=== PATIENT | female | born 1945 | race Caucasian/White ===

== ENCOUNTER 2016-10-09 21:09 | Inpatient (IN) | payer MEDICARE, BC ==
[2016-10-09] MEDS ORDERED: methylPREDNISolone Sodium Succinate 125 MG/2 ML SDV ONE (21:18)
[2016-10-09] MEDS ORDERED: Metoprolol Tartrate 5 MG/5 ML SDV IVPUSH ONE (21:21)
--- NOTE | 2016-10-09 21:26 | EDM.PDOC ---
ED HPI GENERAL MEDICAL PROBLEM - General Chief Complaint: General Stated Complaint: BY AMBULANCE Time Seen by Provider: 10/09/16 21:21 Source of Information: Reports: Patient, EMS History Limitations: Reports: No limitations - History of Present Illness INITIAL COMMENTS - FREE TEXT/NARRATIVE: 71 yo white female c/o SOB Onset: gradual Onset Date: 10/09/16 Onset Time: 20:30 Duration: Hour(s): Location: Reports: chest Worsens with: Reports: Breathing Associated Symptoms: Reports: cough, shortness of breath Middle Back Pain Score (Numeric/FACES): 8 - Related Data Allergies Allergy/AdvReac Type Severity Reaction Status Date / Time fluconazole Allergy Hives Verified 05/06/16 18:27 lorazepam [From Ativan] Allergy Hallucinati Verified 10/09/16 21:44 ons Home Meds: Home Meds Albuterol [Proventil Neb Soln] 1 dose INH BID 05/06/16 [History] Aspirin [Halfprin] 81 mg PO DAILY 05/06/16 [History] Budesonide [Pulmicort] 1 dose INH TID 05/06/16 [History] Bumetanide [Bumex] 1 mg PO DAILY 05/06/16 [History] LORazepam [Ativan] 1 mg IVPUSH Q8H #4 vial 05/06/16 [Rx] Lisinopril 2.5 mg PO BID 05/06/16 [History] Loratadine [Claritin] 10 mg PO DAILY PRN 05/06/16 [History] Montelukast [Singulair] 10 mg PO BEDTIME 05/06/16 [History] Multivitamin [Multivitamins] 1 each PO DAILY 05/06/16 [History] Nitroglycerin [Nitrostat] 0.4 mg SL ASDIRECTED 05/06/16 [History] Roflumilast [Daliresp] 500 mg PO DAILY 05/06/16 [History] Umeclidinium Brm/Vilanterol Tr [Anoro Ellipta 62.5-25 Mcg INH] 1 puff INH DAILY 05/06/16 [History] Vitamin B Complex 1 each PO DAILY 05/06/16 [History] cefTRIAXone [Rocephin] 1 gm IV Q24H adv 05/06/16 [Rx] Past Medical History HEENT History: Reports: Cataract Other HEENT History: pt wears glasses Cardiovascular History: Reports: Hypertension, [place], SOB on exertion Other Cardiovascular History: [place]? 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 History: Reports: Musculoskeletal History: Reports: Arthritis, Neck pain, chronic, Osteoporosis Endocrine/Metabolic History: Reports: Osteoporosis - Infectious Disease History Infectious Disease History: Reports: Chicken pox, Measles, Mumps - Past Surgical History Respiratory Surgical History: Reports: None GI Surgical History: Reports: None Female Surgical History: Reports: None Other Female Surgeries/Procedures: female surgical history, cant remember Endocrine Surgical History: Reports: None Other Musculoskeletal Surgeries/Procedures:: has seen chiropractor Social & Family History - Family History Cardiac: Reports: High cholesterol, Hypertension, [place], Pacemaker Other Cardiac Family History: both parents high cholesterol, [place] father et had pacemaker, brother sister-high cholesterol Respiratory: Reports: COPD Other Respiratory Family Hisory: brother GI: Reports: GERD Other GI Family History: sister : Reports: None OBGYN: Reports: None Musculoskeletal: Reports: Osteoporosis Other Musculoskeletal Family History: mother Neurological: Reports: CVA Other Neurological Family History: mother Psychiatric: Reports: None Endocrine/Metabolic: Reports: None Hematologic: Reports: None Immunologic: Reports: None Dermatologic: Reports: None Oncologic: Reports: None - Caffeine Use Caffeine Use: Reports: Coffee ED ROS GENERAL - Review of Systems Review Of Systems: See Below Constitutional: Reports: malaise, weakness HEENT: Reports: No symptoms Respiratory: Reports: shortness of breath Cardiovascular: Reports: No symptoms Endocrine: Reports: no symptoms GI/Abdominal: Reports: No symptoms : Reports: no symptoms Musculoskeletal: Reports: no symptoms Skin: Reports: no symptoms Neurological: Reports: no symptoms Psychiatric: Reports: No symptoms Hematologic/Lymphatic: Reports: no symptoms Immunologic: Reports: no symptoms ED EXAM, GENERAL - Physical Exam Exam: See Below Exam Limited By: No limitations General Appearance: alert, anxious, moderate distress Eye Exam: bilateral eye: PERRL Ears: normal external exam, normal canal Nose: normal inspection Throat/Mouth: Normal inspection Head: atraumatic Neck: normal inspection Respiratory/Chest: respiratory distress, accessory muscle use Cardiovascular: normal peripheral pulses, tachycardia GI/Abdominal: normal bowel sounds, soft Back Exam: normal inspection Extremities: normal inspection Neurological: alert, oriented, CN II-XII intact Psychiatric: normal affect, normal mood Skin Exam: Warm, Dry, Intact Lymphatic: no adenopathy Course - Vital Signs Last Recorded V/S: Last Vital Signs Temp 37.3 C 10/09/16 21:11 Pulse 160 H 10/09/16 21:26 Resp 42 H 10/09/16 21:11 BP 145/79 H 10/09/16 21:26 Pulse Ox 90 L 10/09/16 21:11 - Orders/Labs/Meds Orders: Active Orders 24 hr Category Date Time Status EKG 12 Lead [EKG Documentation Completion] [RC] ROUTINE Care 10/09/16 22:05 Active EKG 12 Lead [EKG Documentation Completion] [RC] STAT Care 10/09/16 21:24 Active Sodium Chloride 0.9% [Normal Saline] 1,000 ml Med 10/09/16 21:30 Active IV ASDIRECTED Medication Orders Sodium Chloride (Normal Saline) 1,000 mls @ 100 mls/hr IV ASDIRECTED ALISSON Last Admin: 10/09/16 21:11 Dose: 100 mls/hr Labs: Laboratory Tests 10/09/16 10/09/16 10/09/16 Range/Units 21:39 21:39 21:39 WBC 8.6 (5.0-10.0) 10^3/uL RBC 4.09 L (4.2-5.4) 10^6/uL Hgb 13.3 (12.0-16.0) g/dL Hct 41.1 (37.0-47.0) % MCV 100.5 H (80-100) fL MCH 32.5 (27.0-34.0) pg MCHC 32.4 L (33.0-35.0) g/dL Plt Count 241 (150-450) 10^3/uL Neut % (Auto) 61.8 (42.2-75.2) % Lymph % (Auto) 25.9 (20.5-50.1) % Charles % (Auto) 11.1 H (2-8) % Eos % (Auto) 1.2 (1.0-3.0) % Baso % (Auto) 0.0 (0.0-1.0) % D-Dimer, Quantitative 602 H (0-400) ng/mL ABG pH (7.35-7.45) ABG pCO2 (35-45) mmHg ABG pO2 (70-100) mmHg ABG HCO3 (22-26) mmol/L ABG O2 Saturation (95-100) % ABG Base Excess ((-2)-(+3)) mmol/L Flavio Test O2 Delivery Device Oxygen Flow Rate Sodium 135 (135-145) mmol/L Potassium 4.7 (3.6-5.0) mmol/L Chloride 87 L (101-111) mmol/L Carbon Dioxide 41.0 H (21.0-31.0) mmol/L Anion Gap 11.7 BUN 21 H (7-18) mg/dL Creatinine 0.4 L (0.6-1.3) mg/dL Est Cr Clr Drug Dosing 87.45 mL/min Estimated GFR (MDRD) > 60 BUN/Creatinine Ratio 52.50 Glucose 127 H (74-105) mg/dL Calcium 9.6 (8.4-10.2) mg/dl Total Bilirubin 0.3 (0.2-1.0) mg/dL AST 23 (10-42) IU/L ALT 27 (10-60) IU/L Alkaline Phosphatase 108 (42-121) IU/L Troponin I 0.02 (0.00-0.02) ng/ml B-Natriuretic Peptide 21 (0-100) pg/ml Total Protein 7.3 (6.7-8.2) g/dl Albumin 4.1 (3.2-5.5) g/dl Globulin 3.2 Albumin/Globulin Ratio 1.28 // Range/Units 21:56 WBC (5.0-10.0) 10^3/uL RBC (4.2-5.4) 10^6/uL Hgb (12.0-16.0) g/dL Hct (37.0-47.0) % MCV (80-100) fL MCH (27.0-34.0) pg MCHC (33.0-35.0) g/dL Plt Count (150-450) 10^3/uL Neut % (Auto) (42.2-75.2) % Lymph % (Auto) (20.5-50.1) % Charles % (Auto) (2-8) % Eos % (Auto) (1.0-3.0) % Baso % (Auto) (0.0-1.0) % D-Dimer, Quantitative (0-400) ng/mL ABG pH 7.39 (7.35-7.45) ABG pCO2 65 H (35-45) mmHg ABG pO2 59 L (70-100) mmHg ABG HCO3 38.4 H (22-26) mmol/L ABG O2 Saturation 89 L (95-100) % ABG Base Excess 11 H ((-2)-(+3)) mmol/L Flavio Test Positive O2 Delivery Device Nasal cannula Oxygen Flow Rate 0 Sodium (135-145) mmol/L Potassium (3.6-5.0) mmol/L Chloride (101-111) mmol/L Carbon Dioxide (21.0-31.0) mmol/L Anion Gap BUN (7-18) mg/dL Creatinine (0.6-1.3) mg/dL Est Cr Clr Drug Dosing mL/min Estimated GFR (MDRD) BUN/Creatinine Ratio Glucose (74-105) mg/dL Calcium (8.4-10.2) mg/dl Total Bilirubin (0.2-1.0) mg/dL AST (10-42) IU/L ALT (10-60) IU/L Alkaline Phosphatase (42-121) IU/L Troponin I (0.00-0.02) ng/ml B-Natriuretic Peptide (0-100) pg/ml Total Protein (6.7-8.2) g/dl Albumin (3.2-5.5) g/dl Globulin Albumin/Globulin Ratio Meds: Medications Generic Name Dose Route Start Last Admin Trade Name Freq PRN Reason Stop Dose Admin Sodium Chloride 1,000 mls @ 100 mls/hr 10/09/16 21:30 10/09/16 21:11 Normal Saline IV 100 mls/hr ASDIRECTED ALISSON Administration Discontinued Medications Generic Name Dose Route Start Last Admin Trade Name Freq PRN Reason Stop Dose Admin Methylprednisolone Sodium Succinate Confirm 10/09/16 21:18 10/09/16 21:20 Solu-Medrol Administered 10/09/16 21:19 125 mg Dose Administration 125 mg .ROUTE .STK-MED ONE Metoprolol Tartrate 5 mg 10/09/16 21:21 10/09/16 21:26 Lopressor IVPUSH 10/09/16 21:22 5 mg ONETIME ONE Administration Morphine Sulfate 2 mg 10/09/16 21:44 10/09/16 22:11 Morphine IVPUSH 10/09/16 21:45 2 mg ONETIME ONE Administration Departure - Departure Time of Disposition: 22:28 Disposition: Admitted As Inpatient 68 Condition: fair Clinical Impression: COPD with exacerbation, Tachycardia Pneumonia Qualifiers: Pneumonia type: due to unspecified organism Laterality: right Lung location: lower lobe of lung Qualified Code(s): J18.1 - Lobar pneumonia, unspecified organism - My Orders Last 24 Hours: My Active Orders 10/09/16 21:24 EKG 12 Lead [EKG Documentation Completion] [RC] STAT 10/09/16 21:30 Sodium Chloride 0.9% [Normal Saline] 1,000 ml IV ASDIRECTED 10/09/16 22:05 EKG 12 Lead [EKG Documentation Completion] [RC] ROUTINE - Assessment/Plan Last 24 Hours: My Active Orders 10/09/16 21:24 EKG 12 Lead [EKG Documentation Completion] [RC] STAT 10/09/16 21:30 Sodium Chloride 0.9% [Normal Saline] 1,000 ml IV ASDIRECTED 10/09/16 22:05 EKG 12 Lead [EKG Documentation Completion] [RC] ROUTINE
[2016-10-09] MEDS ORDERED: Sodium Chloride 0.9% 1,000 ML IV SCH (21:30)
[2016-10-09] MEDS ORDERED: Morphine 2 MG/ML Syringe IVPUSH ONE (21:44)
[2016-10-09 21:59] LABS: BASE EXCESS ARTERIAL 11 mmol/L ((-2)-(+3)); BICARBONATE,ARTERIAL 38.4 mmol/L (22-26); O2 DELIVERY DEVICE NASAL CANNULA; O2 FLOW RATE 0; O2 SATURATION ARTERIAL 89 % (95-100); PCO2 ARTERIAL 65 mmHg (35-45); PO2 ARTERIAL 59 mmHg (70-100)
[2016-10-09 22:03] LABS: ALLEN TEST POSITIVE
[2016-10-09 22:07] LABS: CHLORIDE,CL 87 mmol/L (101-111); SODIUM,NA 135 mmol/L (135-145)
[2016-10-09] MEDS ORDERED: cefTRIAXone 1 GM in Sodium Chloride 0.9% 50 ML IV ONE (22:34)
--- NOTE | 2016-10-09 23:14 | PCM.HP ---
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 The pt presented to ED with increased shortness of breath , cough and Possible Rt lower lobe pneumonia. She gets followed by Dr. Torres at [facility] pulmonary clinic Onset of Symptoms: Reports: sudden Associated Symptoms: Reports: cough Middle Back Pain Score (Numeric/FACES): 8 - Related Data Allergies/Adverse Reactions: Allergies Allergy/AdvReac Type Severity Reaction Status Date / Time fluconazole Allergy Hives Verified 10/09/16 23:48 lorazepam [From Ativan] Allergy Hallucinati Verified 10/09/16 23:48 ons Home Medications: Home Meds Albuterol [Proventil Neb Soln] 2.5 mg INH BID 05/06/16 [History] Aspirin [Halfprin] 81 mg PO BEDTIME 05/06/16 [History] Budesonide [Pulmicort] 2 ml INH BID 05/06/16 [History] Bumetanide [Bumex] 1 mg PO DAILY 05/06/16 [History] Lisinopril 2.5 mg PO BID 05/06/16 [History] Loratadine [Claritin] 10 mg PO DAILY PRN 05/06/16 [History] Montelukast [Singulair] 10 mg PO BEDTIME 05/06/16 [History] Nitroglycerin [Nitrostat] 0.4 mg SL ASDIRECTED 05/06/16 [History] Roflumilast [Daliresp] 500 mcg PO DAILY 05/06/16 [History] Umeclidinium Brm/Vilanterol Tr [Anoro Ellipta 62.5-25 Mcg INH] 1 puff INH DAILY 05/06/16 [History] Vitamin B Complex 1 each PO DAILY 05/06/16 [History] Albuterol [Ventolin HFA] 1 - 2 puff INH Q4H PRN 10/09/16 [History] predniSONE [Prednisone] 10 mg PO DAILY 10/09/16 [History] Past Medical History HEENT History: Reports: Cataract Other HEENT History: pt wears glasses Cardiovascular History: Reports: Hypertension, [place], SOB on exertion Other Cardiovascular History: [place]? 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: Musculoskeletal History: Reports: Arthritis, Neck pain, chronic, Osteoporosis Endocrine/Metabolic History: Reports: Osteoporosis - Infectious Disease History Infectious Disease History: Reports: Chicken pox, Measles, Mumps - Past Surgical History Respiratory Surgical History: Reports: None GI Surgical History: Reports: None Female Surgical History: Reports: None Other Female Surgeries/Procedures: female surgical history, cant remember Endocrine Surgical History: Reports: None Other Musculoskeletal Surgeries/Procedures:: has seen chiropractor Social & Family History - Family History Cardiac: Reports: High cholesterol, Hypertension, [place], Pacemaker Other Cardiac Family History: both parents high cholesterol, [place] father et had pacemaker, brother sister-high cholesterol Respiratory: Reports: COPD Other Respiratory Family Hisory: brother GI: Reports: GERD Other GI Family History: sister : Reports: None OBGYN: Reports: None Musculoskeletal: Reports: Osteoporosis Other Musculoskeletal Family History: mother Neurological: Reports: CVA Other Neurological Family History: mother Psychiatric: Reports: None Endocrine/Metabolic: Reports: None Hematologic: Reports: None Immunologic: Reports: None Dermatologic: Reports: None Oncologic: Reports: None - Tobacco Use Smoking Status *Q: Never Smoker Second Hand Smoke Exposure: No - Caffeine Use Caffeine Use: Reports: Coffee - Recreational Drug Use Recreational Drug Use: No H&P Review of Systems - Review of Systems: Review Of Systems: See Below General: Reports: weakness. Denies: fever, chills HEENT: Denies: headaches, sinus congestion, sore throat, visual changes Pulmonary: Reports: shortness of breath, wheezing, cough. Denies: sputum, hemoptysis Cardiovascular: Reports: dyspnea on exertion. Denies: chest pain, lightheadedness Gastrointestinal: Denies: Abdominal pain, Diarrhea, Nausea, Vomiting Genitourinary: Denies: dysuria, frequency, burning, urgency Musculoskeletal: Reports: back pain, leg pain Skin: Denies: jaundice, bruising, pruritis, rash Psychiatric: Reports: anxiety. Denies: confusion Neurological: Denies: confusion, tingling, tremors, change in speech Hematologic/Lymphatic: Reports: no symptoms Immunologic: Reports: no symptoms Exam - Exam Exam: See Below - Vital Signs Vital Signs: Last Vital Signs Temp 37.3 C 10/09/16 21:11 Pulse 160 H 10/09/16 21:26 Resp 42 H 10/09/16 21:11 BP 145/79 H 10/09/16 21:26 Pulse Ox 90 L 10/09/16 21:11 Weight: 41.73 kg - Exam Quality Assessment: supplemental oxygen, DVT prophylaxis, other (on BiPAP). No : urinary catheter General: alert, oriented, cooperative, mild distress HEENT: Conjunctiva clear, Hearing intact, Mucosa moist & pink, Pupils equal Neck: supple. No: lymphadenopathy, thyromegaly Lungs: Clear to auscultation, Normal respiratory effort, Wheezing Cardiovascular: regular rate, regular rhythm, tachycardia, systolic murmur Abdomen: normal bowel sounds. No: guarding, rigidity, rebound (Female) Exam: Deferred Rectal (Female) Exam: Deferred Back Exam: normal inspection Extremities: normal inspection. No: clubbing, calf tenderness, edema Skin: warm, intact Neurological: cranial nerves intact Neuro Extensive - Mental Status: alert, oriented x3, normal mood/affect, normal cognition, memory intact Neuro Extensive - Motor, Sensory, Reflexes: CN II-XII intact Psychiatric: alert, normal affect, normal mood - Patient Data Result Diagrams: 10/09/16 21:39 10/09/16 21:39 *Q Meaningful Use (ADM) - VTE *Q VTE Criteria *Q: - Stroke *Q Stroke Criteria *Q: - AMI *Q AMI Criteria *Q: Problem List Initiated/Reviewed/Updated: Yes Orders Last 24hrs: Medication Orders Sodium Chloride (Normal Saline) 1,000 mls @ 100 mls/hr IV ASDIRECTED ALISSON Last Admin: 10/09/16 21:11 Dose: 100 mls/hr Assessment/Plan Comment:: This is a 71 Y/O F came to ED with cough, Increased shortness of breath and CXR noted for Rt Lwoer lobe Likely Pneumonia 1. COPD exacerbation: -start her on Solumedroal 80 mg IV q4 hrs -Will start Zosyn 3.375 mg 86 hrs and Ceftriaxone 1 gm IV daily -Will continue BiPAP -conutinue Duoneb and Albuterol as needed -Wean off BiPAP as tolerated , if needed will use High Flow oxygen, she is at home on 4 L [place] oxygen -Encourage to use Incentive spirometry and Flutter Valve -Continue Morphine 1 mg q6h prn for anxiety 2. Hypertension: BP acceptable with tachycardia ( EKG- Sinus Tacycardia) Deficienct - Likely from anxiety and also infection ( Likely Pneumonia) -Will start cardizem 30 mg q 6 hrs ( she was at home lisinopril, 2.5 mg BID) 3. Pneumonia: The pt has Rt Lower infioltrate and with history of Alpha1- antitripsin Deficiency -Will cover with broad spectum Abx, Zosyn and Ceftriaxone -Will get sputum culture 4. DVT prophylaxis: Heparin 5000 units qhrs 5. GI Prophylaxis: Proptnix 40 mg daily 6. Code Status: DNR/DNI
[2016-10-09] MEDS ORDERED: Heparin Sodium 5,000 Units/ML Vial SUBCUT SCH (23:45)
[2016-10-09] MEDS ORDERED: methylPREDNISolone Sodium Succinate 40 MG/1 ML SDV IVPUSH SCH (23:45)
[2016-10-09] MEDS ORDERED: Piperacillin/Tazobactam 3.375 GM in Sodium Chloride 0.9% 100 ML IV SCH (23:45)
[2016-10-09] MEDS ORDERED: Acetaminophen 325 MG Tab PO PRN (23:48)
[2016-10-09] MEDS ORDERED: Docusate Sodium 100 MG Cap PO PRN (23:48)
[2016-10-10] MEDS ORDERED: Nitroglycerin 0.4 MG Tab.SL SL SCH
[2016-10-10] MEDS ORDERED: Albuterol 0.021% 0.63 MG/3 ML Neb Soln NEB PRN (00:42)
[2016-10-10] MEDS: Diltiazem IR 30 MG Tab PO SCH ×4 (00:58→17:56)
[2016-10-10] MEDS ORDERED: Piperacillin/Tazobactam 3.375 GM in Sodium Chloride 0.9% 100 ML IV ONE (01:00)
[2016-10-10] MEDS: Morphine 2 MG/ML Syringe IVPUSH PRN ×2 (01:07→09:16)
[2016-10-10] MEDS: Heparin Sodium 5,000 Units/ML Vial SUBCUT SCH ×4 (01:09→22:19)
[2016-10-10] MEDS ORDERED: Nitroglycerin 0.4 MG Tab.SL SL PRN (02:44)
[2016-10-10] MEDS: Albuterol/Ipratropium 3.0-0.5 MG/3 ML Neb Soln NEB SCH ×6 (03:08→22:31)
[2016-10-10] MEDS: methylPREDNISolone Sodium Succinate 40 MG/1 ML SDV IVPUSH SCH ×4 (03:12→22:02)
[2016-10-10] MEDS: Pantoprazole 40 MG Tab.CR PO SCH (05:14)
[2016-10-10] MEDS ORDERED: Piperacillin/Tazobactam 3.375 GM in Sodium Chloride 0.9% 100 ML IV SCH ×4 (06:00)
[2016-10-10] MEDS: Budesonide 0.5 MG/2 ML Neb Susp INH SCH ×2 (06:51→17:57)
[2016-10-10 06:54] LABS: CHLORIDE,CL 89 mmol/L (101-111); SODIUM,NA 133 mmol/L (135-145)
[2016-10-10] MEDS ORDERED: Albuterol 0.083% 2.5 MG/3 ML Neb Soln INH SCH (07:00)
[2016-10-10] MEDS ORDERED: Budesonide 0.5 MG/2 ML Neb Susp INH SCH (07:00)
[2016-10-10] MEDS ORDERED: Albuterol 6.7 GM Inhaler INH PRN ×2 (08:35)
[2016-10-10] MEDS: Azithromycin 500 MG in Sodium Chloride 0.9% 250 ML IV SCH (08:49)
[2016-10-10] MEDS: Vitamin B Complex Tab PO SCH (08:51)
[2016-10-10] MEDS: Bumetanide 1 MG Tab PO SCH (08:51)
[2016-10-10] MEDS: Aspirin 81 MG Tab.EC PO SCH (08:52)
[2016-10-10] MEDS ORDERED: Ciprofloxacin in D5W 400 MG in Premix Bag 1 BAG IV SCH ×2 (09:00)
[2016-10-10] MEDS: Lidocaine 5% 700 MG Patch TOP SCH (11:16)
--- NOTE | 2016-10-10 11:58 | PCM.PN ---
- General Info Date of Service: 10/10/16 Subjective Update: pt states breathing is better then on admit - with BIPAP and steroids/antibx/ nebs. however states about 25% of her baseline. c/o back pain - stain in muscle - has been taking tylenol at home for this- minimal help. Functional Status: Reports: pain controlled, tolerating diet - Review of Systems General: Reports: other (SOB with talking eating ant activity) HEENT: Reports: no symptoms Pulmonary: Reports: shortness of breath, cough Cardiovascular: Reports: palpitations, dyspnea on exertion Gastrointestinal: Reports: Constipation (last BM 10/09/16) Genitourinary: Reports: no symptoms Musculoskeletal: Reports: back pain Neurological: Reports: no symptoms Psychiatric: Reports: no symptoms - Patient Data Vitals - most recent: Last Vital Signs Temp 36.9 C 10/10/16 11:00 Pulse 103 H 10/10/16 11:00 Resp 18 10/10/16 11:00 BP 158/60 H 10/10/16 11:00 Pulse Ox 95 10/10/16 11:00 Weight - most recent: 41.73 kg I&O - last 24 hours: Intake & Output 10/09/16 10/10/16 10/10/16 22:59 06:59 14:59 Intake Total 405 253 Output Total 600 Balance -195 253 Lab Results last 24 hrs: Laboratory Results - last 24 hr 10/10/16 10/10/16 Range/Units 06:16 06:16 WBC 3.9 L (5.0-10.0) 10^3/uL RBC 4.06 L (4.2-5.4) 10^6/uL Hgb 13.3 (12.0-16.0) g/dL Hct 40.7 (37.0-47.0) % MCV 100.2 H (80-100) fL MCH 32.8 (27.0-34.0) pg MCHC 32.7 L (33.0-35.0) g/dL Plt Count 212 (150-450) 10^3/uL Neut % (Auto) 91.0 H (42.2-75.2) % Lymph % (Auto) 7.7 L (20.5-50.1) % Mccreary % (Auto) 1.3 L (2-8) % Eos % (Auto) 0.0 L (1.0-3.0) % Baso % (Auto) 0.0 (0.0-1.0) % Sodium 133 L (135-145) mmol/L Potassium 4.6 (3.6-5.0) mmol/L Chloride 89 L (101-111) mmol/L Carbon Dioxide 36.0 H (21.0-31.0) mmol/L Anion Gap 12.6 BUN 18 (7-18) mg/dL Creatinine 0.6 (0.6-1.3) mg/dL Est Cr Clr Drug Dosing 58.30 mL/min Estimated GFR (MDRD) > 60 Glucose 173 H (74-105) mg/dL Calcium 9.8 (8.4-10.2) mg/dl Med Orders - Current: Current Medications Acetaminophen (Tylenol) 650 mg PO Q4H PRN PRN Reason: Pain (mild 1-3 )/fever Albuterol (Proventil Neb Soln) 0.63 mg NEB Q6HRRT PRN PRN Reason: Shortness of Breath Albuterol/Ipratropium (Duoneb 3.0-0.5 Mg/3 Ml) 3 ml NEB Q4HRRT [facility] Last Admin: 10/10/16 11:16 Dose: 3 ml Aspirin (Halfprin) 81 mg PO DAILY [facility] Last Admin: 10/10/16 08:52 Dose: 81 mg Budesonide (Pulmicort) 0.5 mg INH BIDRT [facility] Last Admin: 10/10/16 06:51 Dose: 0.5 mg Bumetanide (Bumex) 1 mg PO DAILY [facility] Last Admin: 10/10/16 08:51 Dose: 1 mg Diltiazem HCl (Cardizem) 30 mg PO Q6HR [facility] Last Admin: 10/10/16 11:16 Dose: 30 mg Docusate Sodium (Colace) 100 mg PO DAILY PRN PRN Reason: Constipation Heparin Sodium (Porcine) (Heparin Sodium) 5,000 units SUBCUT Q8HR [facility] Last Admin: 10/10/16 05:14 Dose: 5,000 units Ceftriaxone Sodium 1 gm/ (Sodium Chloride) 100 mls @ 200 mls/hr IV Q24H [facility] Azithromycin 500 mg/ Sodium (Chloride) 250 mls @ 250 mls/hr IV Q24H [facility] Last Admin: 10/10/16 08:49 Dose: 250 mls/hr Lidocaine (Lidoderm 5%) 700 mg TOP Q24H [facility] Last Admin: 10/10/16 11:16 Dose: 700 mg Methylprednisolone Sodium Succinate (Solu-Medrol) 80 mg IVPUSH Q6H [facility] Last Admin: 10/10/16 08:50 Dose: 80 mg Miscellaneous Information (Remove Patch) 1 ea TRDERM Q42H [facility] Montelukast Sodium (Singulair) 10 mg PO BEDTIME [facility] Morphine Sulfate (Morphine) 1 mg IVPUSH Q6H PRN PRN Reason: Anxiety Last Admin: 10/10/16 09:16 Dose: 1 mg Nitroglycerin (Nitrostat) 0.4 mg SL Q5M PRN PRN Reason: Chest Pain Non-Formulary Medication (Roflumilast [Daliresp]) 500 mg PO DAILY [facility] Non-Formulary Medication (Umeclidinium Brm/Vilanterol Tr [Anoro Ellipta 62.5-25 Mcg Inh]) 1 puff INH DAILY [facility] Pantoprazole Sodium (Protonix) 40 mg PO ACBREAKFAST [facility] Last Admin: 10/10/16 05:14 Dose: 40 mg Ptom - Albuterol Mdi ((Ventolin) 90 Mcg) 0 each INH Q2H PRN PRN Reason: Shortness of Breath Vitamin B Complex (Vitamin B Complex) 1 each PO DAILY [facility] Last Admin: 10/10/16 08:51 Dose: 1 each Discontinued Medications Albuterol (Proventil Hfa) 0 gm INH Q4H PRN PRN Reason: Wheezing Last Admin: 10/10/16 05:31 Dose: 2 puff Albuterol (Proventil Neb Soln) 2.5 mg INH BIDRT [facility] Last Admin: 10/10/16 06:43 Dose: 2.5 mg Albuterol (Proventil Hfa) 0 gm INH Q2H PRN PRN Reason: Shortness of Breath Last Admin: 10/10/16 08:48 Dose: 2 puff Budesonide (Pulmicort) 0.5 mg INH TIDRT [facility] Heparin Sodium (Porcine) (Heparin Sodium) 5,000 units SUBCUT Q8H [facility] Last Admin: 10/10/16 01:53 Dose: Not Given Sodium Chloride (Normal Saline) 1,000 mls @ 100 mls/hr IV ASDIRECTED [facility] Last Admin: 10/09/16 21:11 Dose: 100 mls/hr Ceftriaxone Sodium 1 gm/ (Sodium Chloride) 50 mls @ 100 mls/hr IV ONETIME ONE Stop: 10/09/16 23:03 Last Admin: 10/09/16 22:54 Dose: 100 mls/hr Piperacillin Sod/Tazobactam (Sod 3.375 gm/ Sodium Chloride) 100 mls @ 200 mls/ hr IV Q6H [facility] Last Admin: 10/10/16 01:54 Dose: Not Given Ciprofloxacin/Dextrose 400 mg/ (Premix) 200 mls @ 200 mls/hr IV Q12HR [facility] Piperacillin Sod/Tazobactam (Sod 3.375 gm/ Sodium Chloride) 100 mls @ 200 mls/ hr IV ONETIME ONE Stop: 10/10/16 01:29 Last Admin: 10/10/16 01:07 Dose: 200 mls/hr Piperacillin Sod/Tazobactam (Sod 3.375 gm/ Sodium Chloride) 100 mls @ 200 mls/ hr IV Q6H [facility] Last Admin: 10/10/16 05:14 Dose: 200 mls/hr Methylprednisolone Sodium Succinate (Solu-Medrol) Confirm Administered Dose 125 mg .ROUTE .STK-MED ONE Stop: 10/09/16 21:19 Last Admin: 10/09/16 21:20 Dose: 125 mg Methylprednisolone Sodium Succinate (Solu-Medrol) 80 mg IVPUSH Q6H [facility] Last Admin: 10/10/16 01:54 Dose: Not Given Metoprolol Tartrate (Lopressor) 5 mg IVPUSH ONETIME ONE Stop: 10/09/16 21:22 Last Admin: 10/09/16 21:26 Dose: 5 mg Morphine Sulfate (Morphine) 2 mg IVPUSH ONETIME ONE Stop: 10/09/16 21:45 Last Admin: 10/09/16 22:11 Dose: 2 mg Nitroglycerin (Nitrostat) 0.4 mg SL ASDIRECTED [facility] - Exam Quality Assessment: supplemental oxygen General: alert, oriented, cooperative, mild distress HEENT: Pupils equal Lungs: Decreased breath sounds, Rales, Wheezing, Other (accessory muscle use ) Cardiovascular: regular rhythm, tachycardia Abdomen: bowel sounds present, soft, no tenderness Extremities: no edema Peripheral Pulses: 2+: radial (L), radial (R) Skin: warm, dry Physical Findings Comments:: tender to right iliosacral region; no bruising. - Problem List & Annotations (1) COPD with exacerbation SNOMED Code(s): 697859265, 233910507 Code(s): J44.1 - CHRONIC OBSTRUCTIVE PULMONARY DISEASE W (ACUTE) EXACERBATION Status: Acute Current Visit: Yes - Problem List Review Problem List Initiated/Reviewed/Updated: Yes - My Orders Last 24 Hours: My Active Orders 10/10/16 08:00 Azithromycin [Zithromax] 500 mg Sodium Chloride 0.9% [Normal Saline] 250 ml IV Q24H 10/10/16 08:35 RT Pre-Treatment Assessment [RC] Click To Edit 10/10/16 10:00 Lidocaine 5% [Lidoderm 5%] 700 mg TOP Q24H 10/10/16 10:51 Patient's Own Medication [Ptom] 0 each INH Q2H PRN 10/10/16 22:00 Remove Patch 1 ea TRDERM Q42H - Plan Plan:: This is a 71 Y/O F came to ED with cough, Increased shortness of breath and CXR noted for Rt Lwoer lobe Likely Pneumonia 1. COPD exacerbation: -cont Solumedroal 80 mg IV q4 hrs - started - home dose of prednisone 10 mg -Will d/c Zosyn (double coverage not needed at this time) cont Ceftriaxone 1 gm IV daily and add azithromycin -PRN BiPAP -conutinue Duoneb and Albuterol as needed -Wean off BiPAP as tolerated , if needed will use High Flow oxygen, she is at home on 4 - 6 L NC oxygen - caution with CO2 retention - oxygen of 90% should be fine -Encourage to use Incentive spirometry and Flutter Valve -Continue Morphine 1 mg q6h prn for anxiety - doesnt tolerate benzos 2. Hypertension: BP acceptable with tachycardia ( EKG- Sinus Tacycardia) Deficienct - Likely from anxiety and also infection ( Likely Pneumonia) -improved- appears back to baseline -cont cardizem 30 mg q 6 hrs ( she was at home lisinopril, 2.5 mg BID) 3. Possible Pneumonia: The pt has Rt Lower infioltrate and with history of Alpha1- antitripsin Deficiency -Will cover as communitiy aquired- no admits in last 3 months - cont Ceftriaxone add azithromycin -blood cultures- neg to date 4. back pain -possible low muscle strain -cont tylenol- add lidoderm patch -add heat PRN 5. h/o constiopation -monitro - last BM 09/29/16 -con t bowel regimen - DVT prophylaxis: Heparin 5000 units qhrs . GI Prophylaxis: Proptnix 40 mg daily 6. Code Status: DNR/DNI
[2016-10-10] MEDS: ALBUTEROL MDI INH PRN ×3 (13:28→22:10)
[2016-10-10] MEDS ORDERED: ROFLUMILAST 500 MCG PO SCH ×2 (13:34→13:36)
[2016-10-10] MEDS: VILANTEROL TR INH SCH (13:55)
[2016-10-10] MEDS: UMECLIDINIUM BRM INH SCH (13:55)
[2016-10-10] MEDS: ROFLUMILAST 500 MCG PO SCH (14:08)
[2016-10-10] MEDS: Insulin Aspart 100 Units/ML 3 ML Pen SUBCUT SCH ×2 (17:55→21:52)
[2016-10-10] MEDS ORDERED: Montelukast 10 MG Tab PO SCH (21:00)
[2016-10-10] MEDS: Sodium Chloride 0.9% 10 ML Syringe FLUSH PRN ×2 (22:01→22:19)
[2016-10-11] MEDS ORDERED: cefTRIAXone 1 GM in Sodium Chloride 0.9% 100 ML IV SCH ×2
[2016-10-11] MEDS: Sodium Chloride 0.9% 10 ML Syringe FLUSH PRN ×4 (00:14→03:10)
[2016-10-11] MEDS: Diltiazem IR 30 MG Tab PO SCH ×4 (00:27→12:17)
[2016-10-11] MEDS: Albuterol/Ipratropium 3.0-0.5 MG/3 ML Neb Soln NEB SCH ×3 (02:47→12:14)
[2016-10-11] MEDS: methylPREDNISolone Sodium Succinate 40 MG/1 ML SDV IVPUSH SCH (03:05)
[2016-10-11] MEDS: Pantoprazole 40 MG Tab.CR PO SCH (05:22)
[2016-10-11] MEDS: ALBUTEROL MDI INH PRN ×2 (05:26→10:57)
[2016-10-11] MEDS: Heparin Sodium 5,000 Units/ML Vial SUBCUT SCH (06:04)
[2016-10-11 06:34] LABS: CHLORIDE,CL 90 mmol/L (101-111); SODIUM,NA 137 mmol/L (135-145)
[2016-10-11] MEDS: Budesonide 0.5 MG/2 ML Neb Susp INH SCH (07:20)
[2016-10-11] MEDS: Insulin Aspart 100 Units/ML 3 ML Pen SUBCUT SCH ×2 (08:02→12:17)
[2016-10-11] MEDS: Azithromycin 500 MG in Sodium Chloride 0.9% 250 ML IV SCH (08:13)
[2016-10-11] MEDS: UMECLIDINIUM BRM INH SCH (08:18)
[2016-10-11] MEDS: VILANTEROL TR INH SCH (08:18)
[2016-10-11] MEDS: Bumetanide 1 MG Tab PO SCH (08:18)
[2016-10-11] MEDS: Aspirin 81 MG Tab.EC PO SCH (08:18)
[2016-10-11] MEDS: Vitamin B Complex Tab PO SCH (08:18)
[2016-10-11] MEDS: ROFLUMILAST 500 MCG PO SCH (08:18)
[2016-10-11] MEDS ORDERED: methylPREDNISolone Sodium Succinate 40 MG/1 ML SDV IVPUSH SCH (09:00)
[2016-10-11] MEDS: Morphine 2 MG/ML Syringe IVPUSH PRN ×2 (09:17→12:15)
[2016-10-11] MEDS: Lidocaine 5% 700 MG Patch TOP SCH (09:18)
--- NOTE | 2016-10-11 12:17 | PCM.DCSUM1 ---
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 The pt presented to ED with increased shortness of breath , cough and Possible Rt lower lobe pneumonia. She gets followed by Dr. Torres at [facility] pulmonary clinic - Discharge Data Discharge Date: 10/11/16 Discharge Disposition: DC/Tfer to Acute Hospital 02 Condition: Poor - Discharge Diagnosis/Problem(s) (1) COPD with exacerbation SNOMED Code(s): 252030267, 745608384 ICD Code: J44.1 - CHRONIC OBSTRUCTIVE PULMONARY DISEASE W (ACUTE) EXACERBATION Status: Acute Current Visit: Yes - Patient Summary/Data Hospital Course: 1. COPD exacerbation with acute on chronic hypoxic/hypercapnic respiratory failure -cont Solumedroal 80 mg IV q8 hrs - started - home dose of prednisone 10 mg - cont Ceftriaxone 1 gm IV daily and azithromycin -PRN BiPAP - hasn't needed since first night of admit -conutinue nebs and inhalors -cont High Flow oxygen, she is at home on 4 - 6 L NC oxygen - caution with CO2 retention - oxygen of 90% should be fine -Encourage to use Incentive spirometry and Flutter Valve -Continue Morphine 1 mg q6h prn for anxiety - doesnt tolerate benzos -case d/w Lynne Dillon- who is familiar with pt - consider changing pulmicort to TID -Despite 48 hours with treatment pt has little improvement; will transfer to [facility] for pulmonary consult 2. Hypertension: BP acceptable with tachycardia ( EKG- Sinus Tacycardia) Deficienct - Likely from anxiety and also infection ( Likely Pneumonia) -this am pt is tachy -rates 120-160s with minimal activity to bathroom with bedside commode. -pressures are stable - no dizziness, no near syncope -cont cardizem 30 mg q 6 hrs ( she was at home lisinopril, 2.5 mg BID) 3. Possible Pneumonia: The pt has Rt Lower infioltrate and with history of Alpha1- antitripsin Deficiency -Will cover as communitiy aquired- no admits in last 3 months - cont Ceftriaxone add azithromycin -blood cultures- neg to date 4. back pain -possible low muscle strain -cont tylenol- add lidoderm patch -add heat PRN 5. h/o constiopation -monitro - last BM 09/29/16 -con t bowel regimen - Dispo- pt accecpted by DR. Vizcarra to [facility] for higher level care- pulmonary consult ; DVT prophylaxis: Heparin 5000 units qhrs GI Prophylaxis: Proptnix 40 mg daily Code Status: DNR/DNI - Patient Instructions Diet: Heart Healthy Diet Activity: Bedrest, May Use Bathroom Other/Special Instructions: transfer to higher level of care - [facility] GF - for pulmonary consult - Discharge Plan Home Medications: Home Meds Albuterol [Proventil Neb Soln] 2.5 mg INH BID 05/06/16 [History] Aspirin [Halfprin] 81 mg PO BEDTIME 05/06/16 [History] Budesonide [Pulmicort] 2 ml INH BID 05/06/16 [History] Bumetanide [Bumex] 1 mg PO DAILY 05/06/16 [History] Loratadine [Claritin] 10 mg PO DAILY PRN 05/06/16 [History] Montelukast [Singulair] 10 mg PO BEDTIME 05/06/16 [History] Nitroglycerin [Nitrostat] 0.4 mg SL ASDIRECTED 05/06/16 [History] Roflumilast [Daliresp] 500 mcg PO DAILY 05/06/16 [History] Umeclidinium Brm/Vilanterol Tr [Anoro Ellipta 62.5-25 Mcg INH] 1 puff INH DAILY 05/06/16 [History] Vitamin B Complex 1 each PO DAILY 05/06/16 [History] Albuterol [Ventolin HFA] 1 - 2 puff INH Q4H PRN 10/09/16 [History] Acetaminophen [Tylenol] 650 mg PO QID tablet 10/11/16 [Rx] Albuterol [Proventil Neb Soln] 0.63 mg NEB Q6HRRT PRN #0 neb 10/11/16 [Rx] Albuterol/Ipratropium [DuoNeb 3.0-0.5 MG/3 ML] 3 ml NEB Q4HRRT neb 10/11/16 [Rx ] Azithromycin [Zithromax] 500 mg IV Q24H vial 10/11/16 [Rx] Diltiazem [Cardizem] 30 mg PO Q6HR tablet 10/11/16 [Rx] Heparin Sodium 5,000 units SUBCUT Q8HR vial 10/11/16 [Rx] Insulin Aspart [NovoLOG] 0 unit SUBCUT QIDACANDBED pen 10/11/16 [Rx] Lidocaine 5% [Lidoderm 5%] 700 mg TOP Q24H patch 10/11/16 [Rx] Morphine 1 mg IVPUSH Q6H PRN #0 syringe 10/11/16 [Rx] Pantoprazole [Protonix] 40 mg PO ACBREAKFAST tab.cr 10/11/16 [Rx] cefTRIAXone [Rocephin] 1 gm IV Q24H vial 10/11/16 [Rx] methylPREDNISolone Sod Succ [Solu-MEDROL] 80 mg IVPUSH Q8H sdv 10/11/16 [Rx] - Discharge Summary/Plan Comment DC Time >30 min.: Yes (45 minutes in coordination of transfer ) - General Info Date of Service: 10/11/16 Subjective Update: pt remains very dyspnic with minimal activity, eating and with conversation despite the steroids, nebs, antibx. She reports ongoign cough - which seems looser today. She notes that the lidoderm patch helps her back pain - as does the tylenol but has to ask for the tylenol and "Gets behind" the pain . Functional Status: Reports: tolerating diet, ambulating (minimal - limited by breathing ) - Review of Systems General: Reports: weakness Pulmonary: Reports: shortness of breath, cough Cardiovascular: Reports: dyspnea on exertion, edema Gastrointestinal: Reports: Other (loose stools ) Genitourinary: Reports: no symptoms Musculoskeletal: Reports: back pain Skin: Reports: no symptoms Neurological: Reports: no symptoms Psychiatric: Reports: no symptoms - Patient Data Vitals - Most Recent: Last Vital Signs Temp 36.8 C 10/11/16 11:00 Pulse 95 10/11/16 11:00 Resp 20 10/11/16 11:00 BP 125/63 10/11/16 11:00 Pulse Ox 99 10/11/16 11:00 Weight - Most Recent: 40.551 kg I&O - Last 24 hours: Intake & Output 10/10/16 10/11/16 10/11/16 22:59 06:59 14:59 Intake Total 120 291 120 Output Total 750 Balance 120 -459 120 Lab Results - Last 24 hrs: Laboratory Results - last 24 hr 10/10/16 10/10/16 10/11/16 Range/Units 17:18 20:54 06:10 Sodium 137 (135-145) mmol/L Potassium 4.4 (3.6-5.0) mmol/L Chloride 90 L (101-111) mmol/L Carbon Dioxide 36.0 H (21.0-31.0) mmol/L Anion Gap 15.4 BUN 17 (7-18) mg/dL Creatinine 0.5 L (0.6-1.3) mg/dL Est Cr Clr Drug Dosing 67.98 mL/min Estimated GFR (MDRD) > 60 Glucose 134 H (74-105) mg/dL POC Glucose 171 H 146 H (70-105) mg/dl Calcium 10.0 (8.4-10.2) mg/dl 10/11/16 10/11/16 Range/Units 07:33 11:01 Sodium (135-145) mmol/L Potassium (3.6-5.0) mmol/L Chloride (101-111) mmol/L Carbon Dioxide (21.0-31.0) mmol/L Anion Gap BUN (7-18) mg/dL Creatinine (0.6-1.3) mg/dL Est Cr Clr Drug Dosing mL/min Estimated GFR (MDRD) Glucose (74-105) mg/dL POC Glucose 113 H 133 H (70-105) mg/dl Calcium (8.4-10.2) mg/dl Med Orders - Current: Current Medications Acetaminophen (Tylenol) 650 mg PO Q4H PRN PRN Reason: Pain (mild 1-3 )/fever Last Admin: 10/11/16 05:23 Dose: 650 mg Acetaminophen (Tylenol) 650 mg PO QID [facility] Albuterol (Proventil Neb Soln) 0.63 mg NEB Q6HRRT PRN PRN Reason: Shortness of Breath Albuterol/Ipratropium (Duoneb 3.0-0.5 Mg/3 Ml) 3 ml NEB Q4HRRT [facility] Last Admin: 10/11/16 07:20 Dose: 3 ml Aspirin (Halfprin) 81 mg PO DAILY [facility] Last Admin: 10/11/16 08:18 Dose: 81 mg Budesonide (Pulmicort) 0.5 mg INH BIDRT [facility] Last Admin: 10/11/16 07:20 Dose: 0.5 mg Bumetanide (Bumex) 1 mg PO DAILY [facility] Last Admin: 10/11/16 08:18 Dose: 1 mg Diltiazem HCl (Cardizem) 30 mg PO Q6HR [facility] Last Admin: 10/11/16 10:00 Dose: 30 mg Docusate Sodium (Colace) 100 mg PO DAILY PRN PRN Reason: Constipation Heparin Sodium (Porcine) (Heparin Sodium) 5,000 units SUBCUT Q8HR [facility] Last Admin: 10/11/16 06:04 Dose: 5,000 units Ceftriaxone Sodium 1 gm/ (Sodium Chloride) 100 mls @ 200 mls/hr IV Q24H [facility] Last Admin: 10/11/16 00:22 Dose: 200 mls/hr Azithromycin 500 mg/ Sodium (Chloride) 250 mls @ 250 mls/hr IV Q24H [facility] Last Admin: 10/11/16 08:13 Dose: 250 mls/hr Insulin Aspart (Novolog) 0 unit SUBCUT QIDACANDBED [facility] PRN Reason: Protocol Last Admin: 10/11/16 08:02 Dose: Not Given Lidocaine (Lidoderm 5%) 700 mg TOP Q24H [facility] Last Admin: 10/11/16 09:18 Dose: 700 mg Methylprednisolone Sodium Succinate (Solu-Medrol) 80 mg IVPUSH Q8H [facility] Last Admin: 10/11/16 08:19 Dose: 80 mg Miscellaneous Information (Remove Patch) 1 ea TRDERM Q42H [facility] Last Admin: 10/10/16 22:30 Dose: Not Given Montelukast Sodium (Singulair) 10 mg PO BEDTIME [facility] Last Admin: 10/10/16 21:58 Dose: 10 mg Morphine Sulfate (Morphine) 1 mg IVPUSH Q6H PRN PRN Reason: Anxiety Last Admin: 10/11/16 09:17 Dose: 1 mg Nitroglycerin (Nitrostat) 0.4 mg SL Q5M PRN PRN Reason: Chest Pain Pantoprazole Sodium (Protonix) 40 mg PO ACBREAKFAST [facility] Last Admin: 10/11/16 05:22 Dose: 40 mg Ptom - Umeclidinium Brm/Vilanterol Tr [ Anoro Ellipta 62.5- 25 Mcg] 0 each INH DAILY [facility] Last Admin: 10/11/16 08:18 Dose: 1 each Ptom - Albuterol Mdi ((Ventolin) 90 Mcg) 0 each INH Q2H PRN PRN Reason: Shortness of Breath Last Admin: 10/11/16 10:57 Dose: 2 each Ptom - Roflumilast [ (Daliresp] 500 Mcg) 0 each PO DAILY [facility] Last Admin: 10/11/16 08:18 Dose: 1 each Senna/Docusate Sodium (Senna Plus) 1 tab PO BEDTIME [facility] Last Admin: 10/10/16 21:57 Dose: 1 tab Sodium Chloride (Saline Flush) 10 ml FLUSH ASDIRECTED PRN PRN Reason: Keep Vein Open Last Admin: 10/11/16 03:10 Dose: 10 ml Vitamin B Complex (Vitamin B Complex) 1 each PO DAILY [facility] Last Admin: 10/11/16 08:18 Dose: 1 each Discontinued Medications Albuterol (Proventil Hfa) 0 gm INH Q4H PRN PRN Reason: Wheezing Last Admin: 10/10/16 05:31 Dose: 2 puff Albuterol (Proventil Neb Soln) 2.5 mg INH BIDRT [facility] Last Admin: 10/10/16 06:43 Dose: 2.5 mg Albuterol (Proventil Hfa) 0 gm INH Q2H PRN PRN Reason: Shortness of Breath Last Admin: 10/10/16 08:48 Dose: 2 puff Budesonide (Pulmicort) 0.5 mg INH TIDRT [facility] Heparin Sodium (Porcine) (Heparin Sodium) 5,000 units SUBCUT Q8H [facility] Last Admin: 10/10/16 01:53 Dose: Not Given Sodium Chloride (Normal Saline) 1,000 mls @ 100 mls/hr IV ASDIRECTED [facility] Last Admin: 10/09/16 21:11 Dose: 100 mls/hr Ceftriaxone Sodium 1 gm/ (Sodium Chloride) 50 mls @ 100 mls/hr IV ONETIME ONE Stop: 10/09/16 23:03 Last Admin: 10/09/16 22:54 Dose: 100 mls/hr Piperacillin Sod/Tazobactam (Sod 3.375 gm/ Sodium Chloride) 100 mls @ 200 mls/ hr IV Q6H [facility] Last Admin: 10/10/16 01:54 Dose: Not Given Ciprofloxacin/Dextrose 400 mg/ (Premix) 200 mls @ 200 mls/hr IV Q12HR [facility] Piperacillin Sod/Tazobactam (Sod 3.375 gm/ Sodium Chloride) 100 mls @ 200 mls/ hr IV ONETIME ONE Stop: 10/10/16 01:29 Last Admin: 10/10/16 01:07 Dose: 200 mls/hr Piperacillin Sod/Tazobactam (Sod 3.375 gm/ Sodium Chloride) 100 mls @ 200 mls/ hr IV Q6H [facility] Last Admin: 10/10/16 05:14 Dose: 200 mls/hr Methylprednisolone Sodium Succinate (Solu-Medrol) Confirm Administered Dose 125 mg .ROUTE .STK-MED ONE Stop: 10/09/16 21:19 Last Admin: 10/09/16 21:20 Dose: 125 mg Methylprednisolone Sodium Succinate (Solu-Medrol) 80 mg IVPUSH Q6H [facility] Last Admin: 10/10/16 01:54 Dose: Not Given Methylprednisolone Sodium Succinate (Solu-Medrol) 80 mg IVPUSH Q6H [facility] Last Admin: 10/11/16 03:05 Dose: 80 mg Metoprolol Tartrate (Lopressor) 5 mg IVPUSH ONETIME ONE Stop: 10/09/16 21:22 Last Admin: 10/09/16 21:26 Dose: 5 mg Morphine Sulfate (Morphine) 2 mg IVPUSH ONETIME ONE Stop: 10/09/16 21:45 Last Admin: 10/09/16 22:11 Dose: 2 mg Nitroglycerin (Nitrostat) 0.4 mg SL ASDIRECTED [facility] Ptom - Roflumilast [ (Daliresp] 500 Mcg) 500 each PO DAILY [facility] Last Admin: 10/10/16 14:12 Dose: Not Given Ptom - Roflumilast [ (Daliresp] 500 Mcg) 0 each PO DAILY [facility] - Exam Quality Assessment: Reports: supplemental oxygen General: Reports: alert, oriented, cooperative, moderate distress HEENT: Reports: Pupils equal Lungs: Reports: Decreased breath sounds, Crackles (fine crackes at bases only ) , Wheezing (minamal scatteres wheezes, ) Cardiovascular: Reports: regular rhythm, tachycardia Abdomen: Reports: bowel sounds present, soft, no tenderness Back Exam: Reports: normal inspection, other (tender to palpation - right SI region/ and lumbar paraspinal region. no pain over verbertal bodies ) Extremities: Reports: edema (trace ) Skin: Reports: warm Psy/Mental Status: Reports: alert, normal affect *Q Meaningful Use (DIS) - VTE *Q VTE Criteria *Q: - Stroke *Q Stroke Criteria *Q: - AMI *Q AMI Criteria *Q:
[2016-10-11 12:26] VITALS: BP 128/55
[2016-10-11] MEDS ORDERED: Acetaminophen 325 MG Tab PO SCH (13:00)
--- NOTE | 2016-10-31 08:57 | EKG ---
10/09/2016- JASMINA PRIEST - This is a standard 12-lead EKG with normal sinus rhythm, with sinus tachycardia , and ventricular rate of 105 beats per minute. Normal ID interval, nonspecific ST changes. 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 [facility] /[id number] MTDD
--- NOTE | 2016-11-04 12:00 | EKG ---
10/09/2016 - JASMINA PRIEST - EKG shows a sinus tachycardia. There is Q-wave in inferior leads, suggestive of a prior myocardial infarction. Nonspecific ST-T wave abnormalities. [facility] /[id number]
== END 2016-10-11 12:54 | DRG 190 ==
LOC: DL.ED 21:09 → DL.MS 22:49 → UNDOADMIN 22:49 → DL.MS 23:48 → UNDODISIN 10-11 12:54
PROVIDERS: ADMIT Internal Medicine Nephrology; ATTEND Internal Medicine Nephrology
DX: J44.1 Chronic obstructive pulmonary disease with (acute) exacerbation (principal); J18.9 Pneumonia, unspecified organism; R06.02 Shortness of breath; J96.21 Acute and chronic respiratory failure with hypoxia; I10 Essential (primary) hypertension; M81.0 Age-related osteoporosis without current pathological fracture; Z99.81 Dependence on supplemental oxygen; I12.9 Hypertensive chronic kidney disease with stage 1 through stage 4 chronic kidney disease, or unspecified chronic kidney disease; N18.9 Chronic kidney disease, unspecified; Z79.82 Long term (current) use of aspirin; M54.9 Dorsalgia, unspecified; K59.00 Constipation, unspecified; Z66 Do not resuscitate
CPT/HCPCS: 36415; 36600; 71010; 80048; 80053; 82803; 82962; 83605; 83880; 84484; 85025; 85379; 87040; 93005; 93010; 94640; 94660; 96361; 96374; 96375; 99285; A9270-GY; J0456; J0696; J1644; J1815-GY; J2270; J2543; J2920; J2930; J3490; J7030; J7050; J7620-GY